=== PATIENT | female | born 1985 | race Two or more races ===

== ENCOUNTER 2024-03-24 20:28 | Emergency (ER) | payer OTHER ==
[~2024-03-24] VITALS: Ht 149.9 cm; Wt 102.4 kg
[2024-03-25] MEDS: diphenhydrAMINE 50MG/ML VIAL IV ONE
[2024-03-25] MEDS: METOCLOPRAMIDE INJ 10MG/2ML VIAL IV ONE
[2024-03-25] MEDS: dexAMETHasone 20MG/5ML VIAL IV ONE
[2024-03-25] MEDS: NS 1,000 ML IV ONE
[2024-03-25 01:45] VITALS: BP 117/64; TEMP 98.1; O2SAT 100
== END 2024-03-25 01:45 | disposition home or self-care (01) ==
LOC: M ED 20:28
DX: G43.909 Migraine, unspecified, not intractable, without status migrainosus (principal)
CPT/HCPCS: 96361; 96374; 99284; J1100; J1200; J2765